=== PATIENT | female | born 1990 | race Caucasian/White ===

== ENCOUNTER 2017-07-21 05:31 | Emergency (ER) | payer OTHER, MEDICAID ==
[2017-07-21] MEDS: DEXAMETHASONE 10 MG/ML 1 ML INJ IM (08:19)
[2017-07-21] MEDS: IPRATROPIUM (NEB) 0.5 MG/2.5 ML AMP HHN (08:33)
[2017-07-21] MEDS: ALBUTEROL 0.083% (NEB) 2.5 MG/3 ML AMP HHN (08:33)
== END 2017-07-21 09:20 | disposition home or self-care (01) ==
LOC: FTE 05:31
DX: J45.901 Unspecified asthma with (acute) exacerbation (principal)
CPT/HCPCS: 94664; 96372; 99284-25

== ENCOUNTER 2017-11-01 03:09 | Emergency (ER) | payer OTHER ==
[2017-11-01] MEDS: IPRATROPIUM (NEB) 0.5 MG/2.5 ML AMP NEB (04:09)
[2017-11-01] MEDS: ALBUTEROL 0.083% (NEB) 2.5 MG/3 ML AMP NEB (04:09)
== END 2017-11-01 05:23 | disposition home or self-care (01) ==
LOC: FTE 03:09
DX: J45.901 Unspecified asthma with (acute) exacerbation (principal)
CPT/HCPCS: 94664; 99284-25

== ENCOUNTER 2017-11-11 05:14 | Emergency (ER) | payer OTHER ==
[2017-11-11] MEDS: predniSONE 20 MG TAB PO (06:17)
[2017-11-11] MEDS: IPRATROPIUM (NEB) 0.5 MG/2.5 ML AMP NEB (06:25)
[2017-11-11] MEDS: ALBUTEROL 0.083% (NEB) 2.5 MG/3 ML AMP NEB (06:25)
== END 2017-11-11 07:25 | disposition home or self-care (01) ==
LOC: FTE 05:14
DX: J06.9 Acute upper respiratory infection, unspecified (principal)
CPT/HCPCS: 94664; 99284-25

== ENCOUNTER 2017-12-14 20:33 | Emergency (ER) | payer OTHER ==
[2017-12-14] MEDS: HYDROCODONE/APAP (5/325) TAB PO (20:59)
== END 2017-12-14 22:20 | disposition home or self-care (01) ==
LOC: FTE 20:33
DX: M54.40 Lumbago with sciatica, unspecified side (principal); J45.909 Unspecified asthma, uncomplicated
CPT/HCPCS: 72131; 81025; 99284-25

== ENCOUNTER 2018-05-28 10:08 | Emergency (ER) | payer OTHER | END 2018-05-28 11:27 | disposition home or self-care (01) | LOC: FTE 11:27 | DX: R05 Cough (principal); J45.909 Unspecified asthma, uncomplicated | CPT/HCPCS: 81025; 99283 ==

== ENCOUNTER 2018-09-17 14:52 | Emergency (ER) | payer SELFPAY, OTHER | END 2018-09-17 17:32 | disposition home or self-care (01) | LOC: FTE 14:52 | DX: L30.9 Dermatitis, unspecified (principal); J45.909 Unspecified asthma, uncomplicated | CPT/HCPCS: 99282 ==

== ENCOUNTER 2019-02-04 19:19 | Emergency (ER) | payer OTHER ==
[2019-02-04 20:53] LABS: ADD UMIC YES; UR ASCORBIC ACID NEGATIVE (NEGATIVE); UR BACTERIA FEW /HPF (NONE SEEN); UR BILIRUBIN (Dip) NEGATIVE (NEGATIVE); UR BLOOD (Dip) 1+ mg/dL (NEGATIVE); UR CLARITY CLOUDY (CLEAR); UR COLOR YELLOW (YELLOW); UR GLUCOSE (Dip) NEGATIVE (NEGATIVE); UR KETONES (Dip) NEGATIVE (NEGATIVE); UR LEUKOCYTE ESTERASE (Dip) 3+ Leu/ul (NEGATIVE); UR NITRITE (Dip) NEGATIVE (NEGATIVE); UR RBC 6 /HPF (0-5); UR SPECIFIC GRAVITY (Dip) 1.005 (1.003-1.030); UR SQUAMOUS EPITHELIAL CELL FEW /HPF (FEW); UR TOTAL PROTEIN (Dip) NEGATIVE (NEGATIVE); UR UROBILINOGEN (Dip) NEGATIVE (NEGATIVE); UR WBC 9 /HPF (0-5)
[2019-02-04 20:59] LABS: ADD MAN DIFF? NO
[2019-02-04 21:02] LABS: WHITE BLOOD COUNT 11.6 10^3/ul (4.8-10.8)
[2019-02-04 21:02] LABS: BASOPHIL # 0.1 10^3/ul (0.0-0.1); BASOPHILS % 0.5 % (0.0-2.0); EOSINOPHILS # 0.6 10^3/ul (0.0-0.5); EOSINOPHILS % 5.5 % (0.0-7.0); HEMATOCRIT 39.6 % (37.0-47.0); HEMOGLOBIN 13.3 g/dl (12.0-16.0); LYMPHOCYTES # 3.8 10^3/ul (0.8-2.9); LYMPHOCYTES % 32.7 % (15.0-51.0); MEAN CORPUSCULAR HEMOGLOBIN 30.2 pg (29.0-33.0); MEAN CORPUSCULAR HGB CONC 33.6 g/dl (32.0-37.0); MEAN PLATELET VOLUME 9.6 fl (7.4-10.4); MONOCYTE # 0.8 10^3/ul (0.3-0.9); MONOCYTES % 6.8 % (0.0-11.0); NEUTROPHIL # 6.2 10^3/ul (1.6-7.5); NEUTROPHILS % 54.2 % (39.0-77.0); PLATELET COUNT 365 10^3/UL (140-415); RED CELL DISTRIBUTION WIDTH 12.5 % (11.5-14.5)
[2019-02-04 21:14] LABS: ANION GAP 10 (5-13); BLOOD UREA NITROGEN 14 mg/dl (7-20); CALCIUM 9.1 mg/dl (8.4-10.2); CARBON DIOXIDE 27 mmol/L (21-31); CHLORIDE 103 mmol/L (97-110); CREATININE 0.79 mg/dl (0.44-1.00); Estimated GFR > 60 mL/min (>60); GLUCOSE 93 mg/dl (70-220); POTASSIUM 3.6 mmol/L (3.5-5.1); SODIUM 140 mmol/L (135-144)
[2019-02-04] MEDS: CEPHALEXIN 500 MG CAP PO (21:55)
[2019-02-04] MEDS: ACETAMINOPHEN 325 MG TAB PO (21:56)
== END 2019-02-04 22:15 | disposition home or self-care (01) ==
LOC: FTE 19:19
DX: N39.0 Urinary tract infection, site not specified (principal); J45.909 Unspecified asthma, uncomplicated
CPT/HCPCS: 36415; 70450; 80048; 81001; 81025; 85025; 99284-25